=== PATIENT | male | born 1945 | race Caucasian/White ===

== ENCOUNTER → 2023-03-17 | Outpatient (CLI) | payer BC ==
[2023-03-17 07:05] LABS: African American GFR (CKD) 63 (>60 ml/min/1.73 sqM); Blood Urea Nitrogen 22 mg/dL (9-20); Non-African American GFR(CKD) 55 (>60 ml/min/1.73 sqM)
--- NOTE | 2023-03-17 09:42 | XR ---
EXAMINATION TYPE: XR chest 2V DATE OF EXAM: 03/17/2023 6:25 AM CLINICAL INDICATION:Male, 78 years old with history of C61 Prostate Ca; COMPARISON: Chest radiographs from 03/17/2023. TECHNIQUE: XR chest 2V Frontal and lateral views of the chest. FINDINGS: Lungs/Pleura: There is no evidence of pleural effusion, focal consolidation, or pneumothorax. Pulmonary vascularity: Unremarkable. Heart/mediastinum: Cardiomediastinal silhouette is unremarkable. Musculoskeletal: No acute osseous pathology. IMPRESSION: No acute cardiopulmonary disease/process.
--- NOTE | 2023-03-17 14:39 | NM ---
EXAMINATION TYPE: NM bone scan whole body DATE OF EXAM: 03/17/2023 2:00 PM CLINICAL INDICATION:Male, 78 years old with history of C61 Prostate Ca; COMPARISON: Same day CT. TECHNIQUE: Intravenous administration 25.1 mCi Tc 99m MDP followed by multiple scintigraphic images o f the appendicular and axial skeleton. Images acquired 6 hours post injection. FINDINGS: No abnormal uptake is identified within the appendicular or axial skeleton to suggest metastatic dise ase. There is increased uptake within the bilateral shoulder, sternoclavicular, and sacroiliac joints con sistent with degenerative changes. No other right. Degeneration changes in the right L5 vertebral lev el when correlating with same day CT. Physiologic radiotracer activity is demonstrated in the kidneys and bladder. IMPRESSION: Nothing to suggest metastatic disease
--- NOTE | 2023-03-17 14:40 | CT ---
EXAMINATION TYPE: CT abdomen pelvis w con CT DLP: 1139.1 mGycm, Automated exposure control for dose reduction was used. DATE OF EXAM: 03/17/2023 7:44 AM COMPARISON: . Bone scan from same day. CLINICAL INDICATION:Male, 78 years old with history of C61 Prostate ca; prostate CA TECHNIQUE: Axial CT abdomen pelvis w con;Sagittal and coronal reformats were created on a separate w orkstation. Contrast used:80 mL of Isovue 300 with IV Contrast, (none if empty) Oral contrast used: with Oral Contrast (none if empty) FINDINGS: LOWER CHEST: Unremarkable ABDOMEN LIVER: Unremarkable GALLBLADDER AND BILE DUCTS: Unremarkable. PANCREAS: Unremarkable. SPLEEN: Unremarkable. ADRENAL GLANDS: Unremarkable. KIDNEYS AND URETERS: No evidence of hydronephrosis or renal calculus. The ureters are unremarkable. Bilateral simple appearing renal cysts. PELVIS BLADDER: Unremarkable REPRODUCTIVE: The prostate gland measures up to 43 mm in transverse dimension. No pelvic lymph nodes are identified. Specifically no greater than 1.0 cm lymph nodes in short axis. ABDOMEN & PELVIS STOMACH AND BOWEL: No evidence of bowel obstruction. Third portion duodenal diverticulum. Small hiata l hernia. PERITONEUM/RETROPERITONEUM: No evidence of pneumoperitoneum or free fluid. VASCULATURE: Mild atherosclerotic calcifications are present throughout the abdominal aorta and its b ranches. No evidence of aortic aneurysm. MUSCULOSKELETAL: No acute osseous abnormalities. Multilevel degeneration changes throughout the spine . Bony islands in the bilateral femoral heads. No suspicious osseous sclerotic lesions identified. LYMPH NODES: No gross evidence for lymphadenopathy. SOFT TISSUE/ABDOMINAL WALL: Fat-containing umbilical hernia. IMPRESSION: 1. No evidence for lymphadenopathy or suspicious sclerotic bony metastases. 2. Small hiatal hernia.
== END | disposition home or self-care (01) ==
LOC: RADNMMAIN 05:41
PROVIDERS: ATTEND Urology
DX: C61 Malignant neoplasm of prostate (principal); K44.9 Diaphragmatic hernia without obstruction or gangrene
CPT/HCPCS: 82565; 84520; 71046; 74177; 36415; 78306; A9503; Q9967

== ENCOUNTER → 2023-07-28 | Outpatient (CLI) | payer BC | END | disposition home or self-care (01) | LOC: LABWHC1 08:16 | PROVIDERS: ATTEND Urology | DX: C61 Malignant neoplasm of prostate (principal); Z85.828 Personal history of other malignant neoplasm of skin | CPT/HCPCS: 36415; 84153 ==